=== PATIENT | female | born 1945 | race Caucasian/White ===

== ENCOUNTER → 2018-04-08 | Outpatient (CLI) | payer MEDICARE, OTHER ==
[~2018-04-08] MED LIST: AMARYL4 MG PO; GLUCOPHAGE500 MG PO; LASIX 80 MG TAB80 M1 PO; VALTAREN GEL; ZOCOR 20 MG TAB20 M1 PO
== END ==
LOC: M.RAD 04-07 10:00
DX: Z12.31 Encounter for screening mammogram for malignant neoplasm of breast (principal)

== ENCOUNTER → 2018-05-26 | Outpatient (CLI) | payer MEDICARE, OTHER | LOC: M.ULTRA 04-24 10:30 | DX: E01.0 Iodine-deficiency related diffuse (endemic) goiter (principal); E83.52 Hypercalcemia ==

== ENCOUNTER → 2019-04-09 | Outpatient (CLI) | payer OTHER | LOC: M.RAD 10:00 | DX: Z12.31 Encounter for screening mammogram for malignant neoplasm of breast (principal); E04.1 Nontoxic single thyroid nodule ==

== ENCOUNTER → 2019-06-25 | Outpatient (CLI) | payer OTHER | LOC: M.LAB 10:51 | DX: E21.3 Hyperparathyroidism, unspecified (principal) ==

== ENCOUNTER → 2020-01-10 | Outpatient (CLI) | payer OTHER | LOC: M.RAD 08-24 09:00 | PROVIDERS: ATTEND Registered Nurse Diabetes Educator | DX: M85.88 Other specified disorders of bone density and structure, other site (principal); Z78.0 Asymptomatic menopausal state ==

== ENCOUNTER 2020-03-01 09:19 | Emergency (ER) | payer OTHER ==
[~2020-03-01] VITALS: Ht 162.6 cm; Wt 106.6 kg
[2020-03-01] MEDS ORDERED: NORCO 5-325 TA1 EAC2 PO (10:44)
[2020-03-01 10:52] VITALS: BP 150/87
== END 2020-03-01 10:52 | disposition home or self-care (01) ==
LOC: M.ERS 09:19
DX: S60.512A Abrasion of left hand, initial encounter (principal); S60.511A Abrasion of right hand, initial encounter; S50.311A Abrasion of right elbow, initial encounter; S99.911A Unspecified injury of right ankle, initial encounter; S89.92XA Unspecified injury of left lower leg, initial encounter; R51 Headache; R22.0 Localized swelling, mass and lump, head; R07.81 Pleurodynia; Z79.899 Other long term (current) drug therapy; W18.39XA Other fall on same level, initial encounter; Y93.89 Activity, other specified; Y92.89 Other specified places as the place of occurrence of the external cause; Y99.8 Other external cause status

== ENCOUNTER → 2020-04-12 | Outpatient (CLI) | payer OTHER ==
[~2020-04-12] MED LIST changes: +NORCO 5-325 TA1 EAC2 PO
== END ==
LOC: M.ULTRA 03-07 13:00 → M.RAD 04-10 09:30 → M.ULTRA 10:20
PROVIDERS: ATTEND Registered Nurse Diabetes Educator
DX: Z12.31 Encounter for screening mammogram for malignant neoplasm of breast (principal); E83.52 Hypercalcemia

== ENCOUNTER 2020-09-18 06:41 | Emergency (ER) | payer OTHER ==
[~2020-09-18] VITALS: Ht 162.6 cm; Wt 108.9 kg
[2020-09-18 07:43] LABS: ABSOLUTE BASOPHILS 0.1 thou/uL (0.0-0.2); ABSOLUTE EOSINOPHILS 0.2 thou/uL (0.0-0.7); ABSOLUTE LYMPHOCYTES 1.7 thou/uL (0.8-5.3); ABSOLUTE MONOCYTES 0.6 thou/uL (0.0-1.2); ABSOLUTE NEUTROPHILS 5.7 thou/uL (1.6-8.1); BASOPHILS 1.2 %; EOSINOPHILS 2.2 %; HEMATOCRIT 38.5 % (37.0-47.0); HEMOGLOBIN 12.9 gm/dL (12.0-15.0); LYMPHOCYTES 20.9 %; MCH 30.4 pg (26.0-34.0); MCHC 33.5 g/dL (28.0-37.0); MCV 90.7 fL (80.0-100.0); MONOCYTES 7.2 %; MPV 7.3 fl. (7.2-11.1); NUCLEATED RBCS 0 /100WBC; PLATELET COUNT* 361 thou/uL (150-400); POLYS 68.5 %; RBC 4.25 mil/uL (4.20-5.00); RDW-CV 13.2 % (10.5-14.5); WBC 8.4 thou/uL (4.0-11.0)
[2020-09-18 07:53] LABS: ANION GAP 9 mmol/L (7-16); BUN 35 mg/dL (7-18); CALCIUM 8.9 mg/dL (8.5-10.1); CHLORIDE 101 mmol/L (98-107); CO2 27 mmol/L (21-32); CREATININE 1.1 mg/dL (0.6-1.3); GLUCOSE 279 mg/dL (70-99); SODIUM 137 mmol/L (136-145)
[2020-09-18 07:54] LABS: APTT 22.5 Seconds (25.0-31.3); INR 0.9; PROTIME 9.5 Seconds (9.20-11.50)
[2020-09-18 08:08] LABS: ALBUMIN 3.4 g/dL (3.4-5.0); ALKALINE PHOSPHATASE 71 U/L (46-116); CK-MB MASS < 0.5 ng/mL (<0.5-3.6); LIPASE 180 U/L (73-393); MAGNESIUM 2.2 mg/dL (1.8-2.4); NT-PRO BRAIN NAT PEPTIDE 92 pg/mL (<300); SGOT 15 U/L (15-37); SGPT 25 U/L (30-65); TOTAL BILIRUBIN 0.2 mg/dL (<0.1-1.0); TOTAL PROTEIN 6.9 g/dL (6.4-8.2)
[2020-09-18 09:25] VITALS: BP 210/92
--- NOTE | 2020-09-18 11:27 | EKG ---
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[place] : 1945 Requested By: Otto Hobbs Order Number: [id number] MD: Mehrdad Nguyen Measurements Intervals [place] Rate: 105 P: 39 [place]: 160 QRS: 36 QRSD: 91 T: 21 QT: 334 QTc: 442 Interpretive Statements Sinus rhythm with sinus arrhythmia and rare PACs Baseline wander in lead(s) V5 No previous ECG available for comparison Electronically Signed On 09-18-2020 11:27:34 CDT by Mehrdad Nguyen [email or web address] <ELECTRONICALLY SIGNED> By: Mehrdad Nguyen MD, [facility] 09/18/20 [id number] Mehrdad Nguyen MD, [facility] /EPI
== END 2020-09-18 09:27 | disposition home or self-care (01) ==
LOC: M.ERS 06:41
PROVIDERS: Family Medicine
DX: R00.2 Palpitations (principal); E11.9 Type 2 diabetes mellitus without complications

== ENCOUNTER → 2021-04-30 | Outpatient (CLI) | payer OTHER ==
[~2021-04-30] MED LIST changes: +ASPIRIN-ACETAM1 EACH PO; +BETIMOL5 ML EA. EYE; +FISH OIL 1,0001 EAC9 PO; +FREESTYLE LANC1 EACH MISCELL; +GLUCOSE TEST S1 EACH MISCELL; +KEFLEX250 MG PO; +LASIX 40 MG TAB40 M2 PO; -LASIX 80 MG TAB80 M1 PO; +LISINOPRIL5 MG PO; +LORATADINE-D 11 EAC1 PO; +SUPER THERAVIT1 EACH PO; +VOLTAREN GEL 1100 G1 TOP; +XALATAN2.5 ML OPHTHALMIC
== END ==
LOC: M.RAD 04-13 09:30
PROVIDERS: ATTEND Registered Nurse Diabetes Educator
DX: Z12.31 Encounter for screening mammogram for malignant neoplasm of breast (principal)